=== PATIENT | female | born 1995 | race Caucasian/White ===

== ENCOUNTER 2017-02-07 07:51 | Emergency (ER) | payer MEDICAID ==
[~2017-02-07] VITALS: Ht 157.5 cm; Wt 65.0 kg
[~2017-02-07 07:51] MED LIST: ADDE10XR PO; ADDE30XR PO; CIPR1SUS4; PRED20 PO; SMZ-800T; [UNRECOGNIZED DRUG - CODE]
[2017-02-07 07:52] VITALS: BP 130/85; PULSE 102; RESP 20; TEMP 98.2; O2SAT 99
[2017-02-07] MEDS ORDERED: ADDE30XR PO (08:04)
[2017-02-07 08:05] VITALS: BP 151/90; PULSE 118; RESP 16; TEMP 98.4; O2SAT 99
[2017-02-07 08:10] VITALS: BP 151/90; PULSE 118; RESP 16; TEMP 98.4; O2SAT 98
[2017-02-07] MEDS ORDERED: ASPIRIN 81 MG CHEW TAB PO ONE (08:15)
[2017-02-07] MEDS ORDERED: LORazepam 2 MG/ML VIAL IV PUSH ONE (08:15)
[2017-02-07] MEDS ORDERED: SODIUM CHLORIDE 0.9% FLUSH 10 ML FLUSH IVF PRN (08:15)
[2017-02-07 08:19] LABS: AUTOMATED NEUTROPHIL # 5.4 TH/MM3 (1.8-7.7); BASOPHIL # 0.1 TH/MM3 (0-0.2); BASOPHIL % 0.8 % (0.0-2.0); EOSINOPHIL # 0.1 TH/MM3 (0-0.4); EOSINOPHIL % 1.2 % (0.0-4.0); HEMATOCRIT 39.4 % (35.0-46.0); HEMO FLAGS DIFF FINAL; LYMPH % 27.3 % (9.0-44.0); LYMPHOCYTE # 2.4 TH/MM3 (1.0-4.8); MEAN CELL VOLUME 79.6 FL (80.0-100.0); MEAN CORPUSCULAR HEMOGLOBIN 27.4 PG (27.0-34.0); MEAN CORPUSCULAR HGB CONC 34.4 % (32.0-36.0); MONO % 9.4 % (0.0-8.0); NEUT % 61.3 % (16.0-70.0); PLATELET COUNT 407 TH/MM3 (150-450); RED BLOOD COUNT 4.95 MIL/MM3 (4.00-5.30); WHITE BLOOD COUNT 8.9 TH/MM3 (4.0-11.0)
--- NOTE | 2017-02-07 08:31 | RADRPT ---
EXAM DATE/TIME: 02/07/2017 08:10 [place] COMPARISON: No previous studies available for comparison. INDICATIONS : Chest Pain MEDICAL HISTORY : None. SURGICAL HISTORY : None. ENCOUNTER: Initial ACUITY: 1 day PAIN SCORE: 9/10 LOCATION: Bilateral chest FINDINGS: A single view of the chest demonstrates the lungs to be symmetrically aerated without evidence of mas s, infiltrate or effusion. The cardiomediastinal contours are unremarkable. Osseous structures are intact. CONCLUSION: No acute disease. Baldo Braun MD on February 07, 2017 at 8:29 Board Certified Radiologist. This report was verified electronically.
[2017-02-07 08:34] LABS: ANION GAP 10 MEQ/L (5-15); APTT (PATIENT) 31.7 SEC (24.3-30.1); INTERNATIONAL NORMALIZED RATIO 1.1 RATIO
[2017-02-07 08:38] LABS: BICARBONATE 23.5 MEQ/L (21.0-32.0); BLOOD UREA NITROGEN 12 MG/DL (7-18); CHLORIDE 104 MEQ/L (98-107); GLOMERULAR FILTRATION RATE 107 ML/MIN (>89); MAGNESIUM 2.2 MG/DL (1.5-2.5); SODIUM (NA) 137 MEQ/L (136-145)
[2017-02-07 08:39] LABS: CREATINE KINASE 88 U/L (26-192); POTASSIUM 4.2 MEQ/L (3.5-5.1)
--- NOTE | 2017-02-07 08:39 | PD ---
HPI . Chest pain Chief Complaint: Chest Pain Time Seen by Provider: 08:05 Travel History International Travel<30 days: No Contact w/Intl Traveler<30days: No Traveled to known affect area: No History of Present Illness HPI Patient presents with a 2 week history of chest pain. She also has upper back pain. It is a sharp pain. Pain is exacerbated by eating and taking deep breaths. She reports no relieving factors. She states that the pain is associated with some nausea. She relates the pain as distantly 8/10 and occasionally 10/10. She denies any previous similar history. She is unsure as to what may have caused the pain. PFSH Past Medical History ADHD: Yes Developmental Delay: No Diminished Hearing: No Genitourinary: Yes (uti as baby) Immunizations Current: Yes Seizures: Yes Tetanus Vaccination: < 5 Years Influenza Vaccination: No ?: Unknown LMP: 01/24/2017 Menopausal: No Past Surgical History Surgical History: No Previous Surgery Social History Alcohol Use: No Tobacco Use: No Substance Use: No Allergies-Medications (Allergen,Severity, Reaction): Coded Allergies: No Known Allergies (Verified , 02/07/17) Reported Meds & Prescriptions Reported Meds & Active Scripts Active Reported Adderall Xr 24 HR (Amphetamine/Dextroamphetamine) 30 Mg Cap 30 Mg PO DAILY PRN Once daily in the morning. Review of Systems Except as stated in HPI: all other systems reviewed are Neg General / Constitutional: No: Fever, Chills Cardiovascular: Positive: Chest Pain or Discomfort Respiratory: No: Shortness of Breath Gastrointestinal: Positive: Nausea, No: Vomiting Psychiatric: Positive: Anxiety Physical Exam Narrative GENERAL: The patient appears withdrawn and tearful. She is speaking in a very soft voice. SKIN: Warm and dry. HEAD: Atraumatic. Normocephalic. EYES: Pupils equal and round. ENT: No nasal bleeding or discharge. Mucous membranes pink and moist. NECK: Trachea midline. Neck is supple. CARDIOVASCULAR: Tachycardic rate, regular rhythm. Heart sounds normal. RESPIRATORY: No accessory muscle use. Lungs are clear with full air movement throughout. Positive anterior chest wall tenderness. GASTROINTESTINAL: Abdomen soft, non-tender, nondistended. MUSCULOSKELETAL: No obvious deformities. No edema. NEUROLOGICAL: Awake and alert. No obvious cranial nerve deficits. Motor grossly within normal limits. Normal speech. PSYCHIATRIC: Depressed, anxious and tearful. Data Data Last Documented VS Vital Signs Date Time Temp Pulse Resp B/P Pulse Ox O2 Delivery O2 Flow Rate FiO2 02/07/17 08:52 102 21 128/84 99 Room Air 02/07/17 08:10 98.4 Orders Basic Metabolic Panel (Bmp) (02/07/17 08:05) Ckmb (Isoenzyme) Profile (02/07/17 08:05) Complete Blood Count With Diff (02/07/17 08:05) D-Dimer (02/07/17 08:05) Magnesium (Mg) (02/07/17 08:05) Prothrombin Time / Inr (Pt) (02/07/17 08:05) Act Partial Throm Time (Ptt) (02/07/17 08:05) Troponin I (02/07/17 08:05) Chest, Single Ap (02/07/17 08:05) Ecg Monitoring (02/07/17 08:05) Iv Access Insert/Monitor (02/07/17 08:05) Oximetry (02/07/17 08:05) Aspirin Chew (Aspirin Chew) (02/07/17 08:15) Sodium Chloride 0.9% Flush (Ns Flush) (02/07/17 08:15) Lorazepam Inj (Ativan Inj) (02/07/17 08:15) Labs Laboratory Tests Test 02/07/17 08:12 White Blood Count 8.9 TH/MM3 Red Blood Count 4.95 MIL/MM3 Hemoglobin 13.5 GM/DL Hematocrit 39.4 % Mean Corpuscular Volume 79.6 FL Mean Corpuscular Hemoglobin 27.4 PG Mean Corpuscular Hemoglobin 34.4 % Concent Red Cell Distribution Width 14.0 % Platelet Count 407 TH/MM3 Mean Platelet Volume 8.0 FL Neutrophils (%) (Auto) 61.3 % Lymphocytes (%) (Auto) 27.3 % Monocytes (%) (Auto) 9.4 % Eosinophils (%) (Auto) 1.2 % Basophils (%) (Auto) 0.8 % Neutrophils # (Auto) 5.4 TH/MM3 Lymphocytes # (Auto) 2.4 TH/MM3 Monocytes # (Auto) 0.8 TH/MM3 Eosinophils # (Auto) 0.1 TH/MM3 Basophils # (Auto) 0.1 TH/MM3 CBC Comment DIFF FINAL Differential Comment Prothrombin Time 12.0 SEC Prothromb Time International 1.1 RATIO Ratio Activated Partial 31.7 SEC Thromboplast Time D-Dimer Quantitative (PE/DVT) LESS THAN 0.19 MG/L FEU Sodium Level 137 MEQ/L Potassium Level 4.2 MEQ/L Chloride Level 104 MEQ/L Carbon Dioxide Level 23.5 MEQ/L Anion Gap 10 MEQ/L Blood Urea Nitrogen 12 MG/DL Creatinine 0.70 MG/DL Estimat Glomerular Filtration 107 ML/MIN Rate Random Glucose 86 MG/DL Calcium Level 9.4 MG/DL Magnesium Level 2.2 MG/DL Total Creatine Kinase 88 U/L Troponin I LESS THAN 0.02 NG/ML MDM Medical Decision Making Medical Screen Exam Complete: Yes Emergency Medical Condition: Yes Medical Record Reviewed: Yes (she has a history of ADHD.) Interpretation(s) EKG shows a sinus tachycardia with a ventricular rate of 114. No ST segment elevation or depression. Differential Diagnosis Differential diagnosis of chest pain includes but is not limited to musculoskeletal pain, pulmonary embolism, acute coronary syndrome, pneumonia, pleurisy Narrative Course CBC & BMP Diagram 02/07/17 08:12 Her d-dimer is less than 0.19 Cardiac enzymes are negative Last Impressions Chest X-Ray 02/07/17 0805 Signed Impressions: Service Date/Time: Tuesday, February 07, 2017 08:10 - CONCLUSION: No acute disease. Baldo Braun MD The chest x-ray was independently viewed by me. Patient presents with a two-week history of chest pain. She appears tearful and anxious. Her EKG shows sinus tachycardia. She will be treated presumptively for anxiety while her workup is pending. Most likely etiology of her chest pain is anxiety. She could also have a component of chest wall pain. Diagnosis Primary Impression: Chest pain Qualified Code: R07.9 - Chest pain, unspecified type Additional Impression: Anxiety disorder Qualified Code: F41.9 - Anxiety disorder, unspecified type Referrals: Primary Care Physician Patient Instructions: Anxiety (DC), Chest Pain (DC), General Instructions, Narcotic given in the ED Med/Other Pt SpecificInfo: Prescription(s) given Scripts Lorazepam (Ativan)1 Mg Tab1 Mg PO Q6H PRN (ANXIETY AND/OR AGITATION) #15 TAB Ref 0 Prov:Tamika Molina MD 02/07/17 Tramadol (Ultram)50 Mg Tab50 Mg PO Q4H PRN (PAIN) #12 TAB Ref 0 Prov:Tamika Molina MD 02/07/17 Ibuprofen 800 Mg [id number] Mg PO Q8H PRN (pain) #30 TAB Ref 0 Prov:Tamika Molina MD 02/07/17 Disposition: 01 DISCHARGE HOME Condition: Stable Tamika Molina MD Feb 07, 2017 08:39
[2017-02-07 08:52] VITALS: BP 128/84; PULSE 102; RESP 21; O2SAT 99
[2017-02-07] MEDS ORDERED: ULTR50TA5 PO (09:18)
[2017-02-07] MEDS ORDERED: IBUP800T23 PO (09:18)
[2017-02-07] MEDS ORDERED: LORA-474 PO (09:18)
[2017-02-07 09:31] VITALS: BP 120/67; TEMP 97.8
--- NOTE | 2017-02-07 12:08 | EKG ---
Date Performed: 02/07/2017 Time Performed: 08:04:34 PTAGE: 21 years EKG: SINUS TACHYCARDIA NONSPECIFIC T-WAVE ABNORMALITY ABNORMAL RHYTHM ECG INTERPRETATION BASED O N A DEFAULT AGE OF 41 YEARS PREVIOUS TRACING : 1996 09.41 DOCTOR: Ernst Castillo Interpretating Date/Time 02/07/2017 12:07:09
== END 2017-02-07 09:31 | disposition home or self-care (01) ==
LOC: NEPC 07:51
DX: R07.9 Chest pain, unspecified (principal); F41.9 Anxiety disorder, unspecified; R00.0 Tachycardia, unspecified; M54.6 Pain in thoracic spine; R11.0 Nausea; R94.31 Abnormal electrocardiogram [ECG] [EKG]; Z86.59 Personal history of other mental and behavioral disorders; Z86.69 Personal history of other diseases of the nervous system and sense organs
CPT/HCPCS: 71010; 80048; 82550; 83735; 84484; 85025; 85379; 85610; 85730; 93005; 96374; 99285; J2060

== ENCOUNTER 2017-02-27 18:02 | Emergency (ER) | payer MEDICAID ==
[~2017-02-27] VITALS: Ht 157.5 cm; Wt 65.0 kg
[~2017-02-27 18:02] MED LIST changes: -ADDE10XR PO; -CIPR1SUS4; +IBUP800T23 PO; +LORA-474 PO; -PRED20 PO; -SMZ-800T; +ULTR50TA5 PO; -[UNRECOGNIZED DRUG - CODE]
[2017-02-27 18:04] VITALS: BP 134/83; PULSE 111; RESP 17; TEMP 98.2; O2SAT 98
--- NOTE | 2017-02-27 18:11 | PD ---
Physical Exam Date Seen by Provider: Feb 27, 2017 Time Seen by Provider: 18:08 Narrative Pt presents for evaluation of 2 weeks of headaches. Pt has trialed Ibuprofen with no relief. Pt stated she vomited this morning and reports mild nausea. Pain is a 5/10, radiates down neck and she states it is hard to breath. Pt reports hx of panic disorder and thinks this could be partly responsible for the SOB. Pt states she has pressure behind her eyes. Data Data Last Documented VS Vital Signs Date Time Temp Pulse Resp B/P Pulse Ox O2 Delivery O2 Flow Rate FiO2 02/27/17 18:04 98.2 111 17 134/83 98 MDM Supervised Visit with BOBO: Helen Cruz Feb 27, 2017 18:11
--- NOTE | 2017-02-27 18:39 | PD ---
HPI . headache x 2 weeks Chief Complaint: Headache Time Seen by Provider: 18:38 Travel History International Travel<30 days: No Contact w/Intl Traveler<30days: No Traveled to known affect area: No History of Present Illness HPI 21-year-old female with history of anxiety and ADHD here with complaints of headache for 2 weeks. Patient tells me that she has had a headache in the frontal area sometimes going to the back of her head for 2 weeks. She's tried ibuprofen without any relief. She does have a history of headaches, but this headache seems to be more pressure-like in nature. She reports that her head feels full. She admits to having some similar issues last year, but her eyes were puffy. This year they are not puffy. She thinks she may have had a fever , but never checked it with a thermometer. She denies any chills. She denies any nasal congestion. She denies any visual changes. She denies any neuro deficits. She is accompanied by a friend. PFSH Past Medical History ADHD: Yes Developmental Delay: No Diminished Hearing: No Genitourinary: Yes (uti as baby) Immunizations Current: Yes Seizures: Yes ?: Not LMP: 02/22/2017 Menopausal: No Social History Alcohol Use: No Tobacco Use: No Substance Use: No Allergies-Medications (Allergen,Severity, Reaction): Coded Allergies: No Known Allergies (Verified , 02/27/17) Reported Meds & Prescriptions Reported Meds & Active Scripts Active Sudafed (Pseudoephedrine HCl) 30 Mg Tab 30 Mg PO Q6H PRN 2 Days Augmentin (Amoxicillin-Clavulanate) 875-125 mg Tab 875 Mg PO BID not for use in CrCl <30 ml/min. Ativan (Lorazepam) 1 Mg Tab 1 Mg PO Q6H PRN Ultram (Tramadol HCl) 50 Mg Tab 50 Mg PO Q4H PRN Ibuprofen 800 Mg Tab 800 Mg PO Q8H PRN Reported Adderall Xr 24 HR (Amphetamine/Dextroamphetamine) 30 Mg Cap 30 Mg PO DAILY PRN Once daily in the morning. Review of Systems General / Constitutional: No: Fever Eyes: No: Visual changes HENT: Positive: Headaches Cardiovascular: No: Chest Pain or Discomfort Respiratory: No: Shortness of Breath Gastrointestinal: No: Abdominal Pain Genitourinary: No: Dysuria Musculoskeletal: No: Pain Skin: No Rash Neurologic: No: Weakness Psychiatric: No: Depression Endocrine: No: Polydipsia Hematologic/Lymphatic: No: Easy Bruising Physical Exam Narrative GENERAL: AAO x 3, no acute distress, Well-nourished, well-developed patient. SKIN: Warm and dry. No visible rashes or bruising. HEAD: Normocephalic and atraumatic. EYES: No scleral icterus. No injection or drainage. EOM intact, PERRLA. No photophobia ENT: No nasal drainage noted. Mucous membranes pink. Airway patent. No posterior pharynx erythema, edema or exudates. TMs cloudy bilaterally. Right side is slightly bulging. NECK: Supple, trachea midline. No JVD. No adenopathy. No neck stiffness CARDIOVASCULAR: Regular rate and rhythm without murmurs, gallops, or rubs. HR on exam 102 RESPIRATORY: Breath sounds equal bilaterally. No accessory muscle use. No rhonchi or rales. Wheezing GASTROINTESTINAL: Abdomen soft, non-tender, nondistended. EXTREMITIES: No cyanosis or edema. BACK: Nontender without obvious deformity. No CVA tenderness. 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 Upper and lower extremity strength normal. Motor function normal. PSYCH: AAO x 3, normal affect. Data Data Last Documented VS Vital Signs Date Time Temp Pulse Resp B/P Pulse Ox O2 Delivery O2 Flow Rate FiO2 02/27/17 18:04 98.2 111 17 134/83 98 MDM Medical Decision Making Medical Screen Exam Complete: Yes Emergency Medical Condition: Yes Medical Record Reviewed: Yes Differential Diagnosis sinusitis, OM, less likely pharyngitis Narrative Course 21-year-old female with history of anxiety and ADHD here with complaints of headache for 2 weeks. Patient tells me that she has had a headache in the frontal area sometimes going to the back of her head for 2 weeks. She's tried ibuprofen without any relief. She does have a history of headaches, but this headache seems to be more pressure-like in nature. She reports that her head feels full. She admits to having some similar issues last year, but her eyes were puffy. This year they are not puffy. She thinks she may have had a fever , but never checked it with a thermometer. She denies any chills. She denies any nasal congestion. She denies any visual changes. She denies any neuro deficits. She is accompanied by a friend. Patient seen and examined. She appears to have a sinusitis and Right OM. I will treat her with a course of augmentin. I also recommend sudafed. I explained to her that her headache is likely related to sinus pressure. Her heart rate on exam is 102; I reviewed her records and this seems to be within normal range for her baseline. She does not have any neuro deficits. I do not any need for CT scan of brain. There is a clear explanation for her headache. I've advised follow-up with her primary care provider. Patient verbalized understanding of instructions, questions were answered, and thanked me for their care. I advised them if their condition worsens, please return to the nearest emergency room for further care. Diagnosis Primary Impression: Acute sinusitis Qualified Code: J01.00 - Acute maxillary sinusitis, recurrence not specified Additional Impression: ROM (right otitis media) Qualified Code: H65.01 - Right acute serous otitis media, recurrence not specified Patient Instructions: General Instructions, Otitis Media (ED), Sinusitis (ED) Additional Instructions: Please return to emergency department if your symptoms return or worsen. Follow up with your primary care provider. Take medications as prescribed. Med/Other Pt SpecificInfo: Prescription(s) given Scripts Pseudoephedrine (Sudafed)30 Mg Tab30 Mg PO Q6H PRN (NASAL CONGESTION) 2 Days Ref 0 Prov:Hany Merlos MD 02/27/17 Amoxicillin-Clavulanate (Augmentin)875-125 mg [id number] Mg PO BID #20 TAB not for use in CrCl <30 ml/min. Prov:Hany Merlos MD 02/27/17 Disposition: 01 DISCHARGE HOME Condition: Stable Steff Pickard Feb 27, 2017 18:39
[2017-02-27] MEDS ORDERED: SUDA30TA2 PO (18:47)
[2017-02-27] MEDS ORDERED: AUGM875T PO (18:47)
[2017-02-27] MEDS ORDERED: PROMETHAZINE HCL 25 MG TAB PO ONE (19:45)
[2017-02-27] MEDS ORDERED: PROM25TA5 PO (19:45)
== END 2017-02-27 20:16 | disposition home or self-care (01) ==
LOC: NEPK 18:02
DX: J01.90 Acute sinusitis, unspecified (principal); H66.91 Otitis media, unspecified, right ear
CPT/HCPCS: 99283; Q0169

== ENCOUNTER 2017-10-25 16:27 | Inpatient (IN) | payer MEDICAID ==
[~2017-10-25] VITALS: Ht 157.5 cm; Wt 70.0 kg
[~2017-10-25 16:27] MED LIST changes: -ADDE30XR PO; +DEXAMETHASONE SOD PHOS 4 MG/ML VIAL IV ONE; +GLYCOPYRROLATE 1 MG/5 ML SYRINGE IV PUSH ONE; -IBUP800T23 PO; +KETOROLAC TROMETHAMINE 30 MG/ML (IVP) VIAL IV PUSH ONE; +LACTATED RINGER'S 1000 ML INJ 2,000 ML IV ONE; +LIDOCAINE HCL 1% PF 5 ML SYRINGE OTHER ONE; -LORA-474 PO; +NEOSTIGMINE 5 MG/5 ML SYRINGE IV PUSH ONE; +NORE1TAB55 PO; +ONDANSETRON HCL 4 MG/2 ML VIAL IV ONE; +PROPOFOL 200 MG/20 ML AMP IV ONE; +ROCURONIUM INJ 50 MG/5 ML SYRINGE IV PUSH ONE; +SUCCINYLCHOLINE CHLORIDE 100 MG/5 ML SYRINGE IV PUSH ONE; -ULTR50TA5 PO
[2017-10-25 16:29] VITALS: BP 155/87; PULSE 99; RESP 18; TEMP 98.1; O2SAT 99
[2017-10-25] MEDS ORDERED: SODIUM CHLOR 0.9% 1000 ML INJ 1,000 ML IV SCH ×3 (17:20→22:59)
--- NOTE | 2017-10-25 17:26 | PD ---
HPI Chief Complaint: Abdominal Pain Time Seen by Provider: 17:19 Travel History International Travel<30 days: No Contact w/Intl Traveler<30days: No Traveled to known affect area: No History of Present Illness HPI 21-year-old female complains of right lower quadrant abdominal pain and nausea. Patient states the symptoms started 4 days ago. Patient states the pain is severe sharp pain localized to the right lower quadrant abdomen. Patient denies any pain radiation. Patient states that she has nausea but no vomiting or diarrhea. Patient states that she has history of dysmenorrhea and ovarian cyst in the past. Patient was put on control pills for that. Patient started her menstruation period 4 days ago. Patient has history of irregular periods in the past. On a scale of 1-10 the pain is a 9. Patient denies any dysuria or frequency. Patient denies any back pain. PFSH Past Medical History ADHD: Yes Developmental Delay: No Diminished Hearing: No Genitourinary: Yes (uti ) Immunizations Current: Yes Seizures: Yes ?: Not Menopausal: No Past Surgical History Surgical History: No Previous Surgery Social History Alcohol Use: No Tobacco Use: No Substance Use: No Allergies-Medications (Allergen,Severity, Reaction): Coded Allergies: No Known Allergies (Verified , 07/04/17) Reported Meds & Prescriptions Reported Meds & Active Scripts Active Loestrin Fe 1-20 Tablet (Norethindrone-E.estradiol-Iron) 1 Mg-20 Mcg (21)/75 Mg (7) Tablet 1 Tab PO DAILY Review of Systems General / Constitutional: No: Fever Eyes: No: Visual changes HENT: No: Headaches Cardiovascular: No: Chest Pain or Discomfort Respiratory: No: Shortness of Breath Gastrointestinal: Positive: Nausea, Abdominal Pain Genitourinary: No: Dysuria Musculoskeletal: No: Pain Skin: No Rash Neurologic: No: Weakness Psychiatric: No: Depression Endocrine: No: Polydipsia Hematologic/Lymphatic: No: Easy Bruising Physical Exam Narrative GENERAL: Well-nourished, well-developed patient. SKIN: Focused skin assessment warm/dry. HEAD: Normocephalic. EYES: No scleral icterus. No injection or drainage. NECK: Supple, trachea midline. No JVD or lymphadenopathy. CARDIOVASCULAR: Regular rate and rhythm without murmurs, gallops, or rubs. RESPIRATORY: Breath sounds equal bilaterally. No accessory muscle use. GASTROINTESTINAL: Abdomen soft, nondistended. Patient has moderate tenderness on palpation right lower quadrant of the abdomen. No rebound tenderness. No mass. MUSCULOSKELETAL: No cyanosis, or edema. BACK: Nontender without obvious deformity. No CVA tenderness. Neurologic exam normal. Data Data Last Documented VS Vital Signs Date Time Temp Pulse Resp B/P (MAP) Pulse Ox O2 Delivery O2 Flow Rate FiO2 10/25/17 16:29 98.1 99 18 155/87 (109) 99 Room Air Orders Orders Complete Blood Count With Diff (10/25/17 17:20) Comprehensive Metabolic Panel (10/25/17 17:20) Urinalysis - C+S If Indicated (10/25/17 17:20) Ct Abd/Pel W Iv Contrast(Rout) (10/25/17 17:20) Iv Access Insert/Monitor (10/25/17 17:20) Ecg Monitoring (10/25/17 17:20) Oximetry (10/25/17 17:20) Ondansetron Inj (Zofran Inj) (10/25/17 17:30) Sodium Chlor 0.9% 1000 Ml Inj (Ns 1000 M (10/25/17 17:20) Sodium Chloride 0.9% Flush (Ns Flush) (10/25/17 17:30) Ed Urine Pregnancytest Poc (10/25/17 17:20) Hydromorphone Pf Inj (Dilaudid Pf Inj) (10/25/17 17:30) MDM Medical Decision Making Medical Screen Exam Complete: Yes Emergency Medical Condition: Yes Differential Diagnosis Differential diagnosis including [place] cyst, ovarian torsion, appendicitis, colitis, UTI, pyelonephritis, nephrolithiasis. Narrative Course 21-year-old female with right lower quadrant abdominal pain and nausea. History of ovarian cyst and dysmenorrhea. Normal saline solution 1 25 cc an hour. Dilaudid 0.5 mg IV. Zofran 4 mg IV. Caden Ribera MD Oct 25, 2017 17:25
[2017-10-25] MEDS ORDERED: ONDANSETRON HCL 4 MG/2 ML VIAL IVP ONE (17:30)
[2017-10-25] MEDS ORDERED: HYDROmorphone HCL PF 2 MG/ML VIAL IV PUSH ONE (17:30)
[2017-10-25] MEDS ORDERED: SODIUM CHLORIDE 0.9% FLUSH 10 ML FLUSH IV FLUSH PRN ×2 (17:30→23:00)
[2017-10-25 18:17] LABS: AUTOMATED NEUTROPHIL # 6.6 TH/MM3 (1.8-7.7); BASOPHIL # 0.1 TH/MM3 (0-0.2); BASOPHIL % 0.7 % (0.0-2.0); EOSINOPHIL # 0.2 TH/MM3 (0-0.4); EOSINOPHIL % 1.7 % (0.0-4.0); HEMATOCRIT 42.6 % (35.0-46.0); HEMO FLAGS DIFF FINAL; LYMPH % 26.3 % (9.0-44.0); LYMPHOCYTE # 2.7 TH/MM3 (1.0-4.8); MEAN CELL VOLUME 81.6 FL (80.0-100.0); MEAN CORPUSCULAR HEMOGLOBIN 28.2 PG (27.0-34.0); MEAN CORPUSCULAR HGB CONC 34.6 % (32.0-36.0); MONO % 7.4 % (0.0-8.0); NEUT % 63.9 % (16.0-70.0); PLATELET COUNT 392 TH/MM3 (150-450); RED BLOOD COUNT 5.21 MIL/MM3 (4.00-5.30); RED CELL DISTRIBUTION WIDTH 14.3 % (11.6-17.2); WHITE BLOOD COUNT 10.3 TH/MM3 (4.0-11.0)
[2017-10-25 18:18] LABS: BACTERIA, URINE RARE /hpf; BLOOD, URINE MOD (NEG); GLUCOSE,URINE NEG (NEG); KETONE, URINE NEG (NEG); NITRITE,URINE NEG (NEG); PH, URINE 6.5 (5.0-8.5); SQUAMOUS EPITHELIAL CELL URINE 2 /hpf (0-5); URINE COLOR LIGHT-YELLOW (YELLW/STRAW)
[2017-10-25 18:19] LABS: COMMENT (UR) CULT NOT INDICATED; CULTURE IF INDICATED CULT NOT INDICATED
[2017-10-25 18:37] LABS: ANION GAP 7 MEQ/L (5-15); AST (GOT) 14 U/L (16-38); BICARBONATE 26.8 MEQ/L (21.0-32.0); CHLORIDE 107 MEQ/L (98-107); GLOMERULAR FILTRATION RATE 103 ML/MIN (>89); POTASSIUM 3.7 MEQ/L (3.5-5.1); SODIUM (NA) 141 MEQ/L (136-145)
[2017-10-25 18:43] LABS: ALKALINE PHOSPHATASE 78 U/L (45-117); ALT (GPT) 20 U/L (9-42); BLOOD UREA NITROGEN 8 MG/DL (7-18); TOTAL BILIRUBIN ADULT LESS THAN 0.1 MG/DL (0.2-1.0)
[2017-10-25] MEDS ORDERED: IOHEXOL 350 MG/ML 10 ML VIAL (for RAD DIAG) IVCONTRAST ONE (19:11)
--- NOTE | 2017-10-25 19:22 | PD ---
Physical Exam Date Seen by Provider: Oct 25, 2017 Time Seen by Provider: 19:21 Narrative Accepted in transfer of care from Dr. Ribera GENERAL: Well-developed well-nourished pleasant female in no acute distress no respiratory distress SKIN: Warm and dry. CARDIOVASCULAR: Regular rate and rhythm without murmurs, gallops, or rubs. RESPIRATORY: Breath sounds equal bilaterally. No accessory muscle use. GASTROINTESTINAL: Abdomen soft, tender right lower quadrant to palpation with voluntary guarding, nondistended. Pelvic exam: Normal external exam no redness no induration no ulcerations no gross blood; speculum exam scant amount of brown blood no clots no tissue cervical os is closed; bimanual exam no cervical motion tenderness mild right adnexal tenderness without mass. Data Data Last Documented VS Vital Signs Date Time Temp Pulse Resp B/P (MAP) Pulse Ox O2 Delivery O2 Flow Rate FiO2 10/25/17 20:43 96 16 119/80 (93) 99 10/25/17 20:38 Room Air 10/25/17 16:29 98.1 Orders Orders Complete Blood Count With Diff (10/25/17 17:20) Comprehensive Metabolic Panel (10/25/17 17:20) Urinalysis - C+S If Indicated (10/25/17 17:20) Ct Abd/Pel W Iv Contrast(Rout) (10/25/17 17:20) Iv Access Insert/Monitor (10/25/17 17:20) Ecg Monitoring (10/25/17 17:20) Oximetry (10/25/17 17:20) Ondansetron Inj (Zofran Inj) (10/25/17 17:30) Sodium Chlor 0.9% 1000 Ml Inj (Ns 1000 M (10/25/17 17:20) Sodium Chloride 0.9% Flush (Ns Flush) (10/25/17 17:30) Ed Urine Pregnancytest Poc (10/25/17 17:20) Hydromorphone Pf Inj (Dilaudid Pf Inj) (10/25/17 17:30) Iohexol 350 Inj (Omnipaque 350 Inj) (10/25/17 19:11) Type And Screen (10/25/17 20:38) Labs Laboratory Tests Test 10/25/17 18:00 White Blood Count 10.3 TH/MM3 Red Blood Count 5.21 MIL/MM3 Hemoglobin 14.7 GM/DL Hematocrit 42.6 % Mean Corpuscular Volume 81.6 FL Mean Corpuscular Hemoglobin 28.2 PG Mean Corpuscular Hemoglobin Concent 34.6 % Red Cell Distribution Width 14.3 % Platelet Count 392 TH/MM3 Mean Platelet Volume 8.4 FL Neutrophils (%) (Auto) 63.9 % Lymphocytes (%) (Auto) 26.3 % Monocytes (%) (Auto) 7.4 % Eosinophils (%) (Auto) 1.7 % Basophils (%) (Auto) 0.7 % Neutrophils # (Auto) 6.6 TH/MM3 Lymphocytes # (Auto) 2.7 TH/MM3 Monocytes # (Auto) 0.8 TH/MM3 Eosinophils # (Auto) 0.2 TH/MM3 Basophils # (Auto) 0.1 TH/MM3 CBC Comment DIFF FINAL Differential Comment Urine Color LIGHT-YELLOW Urine Turbidity CLEAR Urine pH 6.5 Urine Specific Brooks 1.004 Urine Protein NEG mg/dL Urine Glucose (UA) NEG mg/dL Urine Ketones NEG mg/dL Urine Occult Blood MOD Urine Nitrite NEG Urine Bilirubin NEG Urine Urobilinogen LESS THAN 2.0 MG/DL Urine Leukocyte Esterase NEG Urine RBC LESS THAN 1 /hpf Urine WBC LESS THAN 1 /hpf Urine Squamous Epithelial Cells 2 /hpf Urine Bacteria RARE /hpf Microscopic Urinalysis Comment CULT NOT INDICATED Blood Urea Nitrogen 8 MG/DL Creatinine 0.72 MG/DL Random Glucose 75 MG/DL Total Protein 7.9 GM/DL Albumin 4.2 GM/DL Calcium Level 9.2 MG/DL Alkaline Phosphatase 78 U/L Aspartate Amino Transf (AST/SGOT) 14 U/L Alanine Aminotransferase (ALT/SGPT) 20 U/L Total Bilirubin LESS THAN 0.1 MG/DL Sodium Level 141 MEQ/L Potassium Level 3.7 MEQ/L Chloride Level 107 MEQ/L Carbon Dioxide Level 26.8 MEQ/L Anion Gap 7 MEQ/L Estimat Glomerular Filtration Rate 103 ML/MIN [facility] Medical Record Reviewed: Yes Supervised Visit with BOBO: No Interpretation(s) Last Impressions Abdomen/Pelvis CT 10/25/17 1720 Signed Impressions: Service Date/Time: October 19:07 - CONCLUSION: 1. Poorly defined tubular structure medial to the cecum measures 11 mm, suggesting a enlarged and inflamed appendix. There is also evidence of significant free fluid in the cul-de-sac. No findings suggest possible appendicitis, but this would need to be correlated with clinical findings. 2. Probable right ovarian cyst. Marcos Hills MD CBC & BMP Diagram 10/25/17 18:00 Total Protein 7.9, Albumin 4.2, Calcium Level 9.2, Alkaline Phosphatase 78, Aspartate Amino Transf (AST/SGOT) 14 L, Alanine Aminotransferase (ALT/SGPT) 20, Total Bilirubin LESS THAN 0.1 L Vital Signs Date Time Temp Pulse Resp B/P (MAP) Pulse Ox O2 Delivery O2 Flow Rate FiO2 10/25/17 16:29 98.1 99 18 155/87 (109) 99 Room Air Differential Diagnosis Accepted in transfer of care from Dr. Ribera; please refer to his dictation Narrative Course Accepted in transfer of care from Dr. Ribera; follow up CT Pelvic exam performed by me reveals no cervical motion tenderness and mild right vaginal wall tenderness no mass os is closed no tissue no clots or blood is present. CT is consistent with possible ruptured ovarian cyst. Also concerning for inflammatory changes in the area of the appendix concerning for appendicitis. Orthostatic vital signs obtained. Call placed to general surgery and to [employer]. @ 8:59 CT discussed with reading radiologist Dr. Hills and states that the dictation should say findings consistent with appendicitis; call placed to general surgery case discussed with Dr. Kumar will review imaging study and will be in to the ED to see the patient. Physician Communication Physician Communication discussed with Dr Kumar [phone] Carmen Bocanegra MD Oct 25, 2017 19:22
--- NOTE | 2017-10-25 19:32 | RADRPT ---
EXAM DATE/TIME: 10/25/2017 19:07 CORRECTION Corrected on: October 25, 2017; typographical error in the impression was corrected. The findings d o suggest appendicitis. [facility] COMPARISON: No previous studies available for comparison. INDICATIONS : Right lower quadrant pain with nausea. IV CONTRAST: 95 cc Omnipaque 350 (iohexol) IV ORAL CONTRAST: No oral contrast ingested. RADIATION DOSE: 7.72 CTDIvol (mGy) MEDICAL HISTORY : None SURGICAL HISTORY : None. ENCOUNTER: Initial ACUITY: 4 - 6 days PAIN SCALE: 10/10 LOCATION: Right lower quadrant TECHNIQUE: Volumetric scanning of the abdomen and pelvis was performed. Using automated exposure control and ad justment of the mA and/or kV according to patient size, radiation dose was kept as low as reasonably achievable to obtain optimal diagnostic quality images. DICOM format image data is available electro nically for review and comparison. FINDINGS: LOWER LUNGS: The visualized lower lungs are clear. LIVER: Homogeneous density without lesion. There is no dilation of the biliary tree. No calcified gallston es. SPLEEN: Normal size without lesion. PANCREAS: Within normal limits. KIDNEYS: Normal in size and shape. There is no mass, stone or hydronephrosis. ADRENAL GLANDS: Within normal limits. VASCULAR: There is no aortic aneurysm. BOWEL/MESENTERY: No dilated loops of small bowel. There is a mild amount of stool in the colon. There is a mild degr ee of induration of the soft tissues medial to the cecum and there is a tubular structure which measu res 11 mm with poorly defined margins, approximately in the expected location of the appendix. His m ay represent an enlarged inflamed appendix. ABDOMINAL WALL: Within normal limits. RETROPERITONEUM: There is no lymphadenopathy. BLADDER: No wall thickening or mass. REPRODUCTIVE: Low-density area in the right adnexa measuring 1.5 cm may represent ovarian cysts. The left ovary me asures 3.6 cm. There is a prominent amount free fluid in the cul-de-sac measuring 2.2 cm. INGUINAL: There is no lymphadenopathy or hernia. MUSCULOSKELETAL: Within normal limits for patient age. CONCLUSION: 1. Poorly defined tubular structure medial to the cecum measures 11 mm, suggesting a enlarged and inf lamed appendix. There is also evidence of significant free fluid in the cul-de-sac. These findings suggest possible appendicitis, but would need to be correlated with clinical findings. 2. Probable right ovarian cyst. Marcos Hills MD on October 25, 2017 at 19:24 Board Certified Radiologist. This report was verified electronically. Marcos Hills MD on October 25, 2017 at 21:01 Board Certified Radiologist. This report was verified electronically.
[2017-10-25 20:38] VITALS: BP 136/88; PULSE 111; RESP 16; O2SAT 98
[2017-10-25 20:43] VITALS: BP 119/80; PULSE 96; RESP 16; O2SAT 99
[2017-10-25] MEDS ORDERED: BUPIVACAINE/EPINEPHRINE 0.5% PF 30 ML VIAL ONE (22:09)
[2017-10-25] MEDS ORDERED: PIPERACIL-TAZO 3.375 GM PREMIX 50 ML IV ONE (22:15)
[2017-10-25] MEDS ORDERED: ACETAMINOPHEN 1000 MG/100 ML 100 ML IV ONE (22:42)
--- NOTE | 2017-10-25 22:59 | HHI.PR ---
Immediate Post Op Note Procedure Date: Oct 25, 2017 Pre Op Diagnosis: acute appendicitis Post Op Diagnosis: same Surgeon: Tello Kumar MD Environmental Engineering Technician(s): see or sheet Procedure: lap appy Findings: distended appendix Complications: none Specimen(s) removed: appendix Estimated blood loss: 5cc Anesthesia: General Drains: None Patient to: PACU Patient Condition: Good Tello Kumar MD Oct 25, 2017 22:59
[2017-10-25] MEDS ORDERED: KETOROLAC TROMETHAMINE 30 MG/ML (IVP) VIAL IVP PRN (23:00)
[2017-10-25] MEDS: DOCUSATE SODIUM 100 MG CAP PO SCH (23:00)
[2017-10-25] MEDS ORDERED: Post-op Orders (for Pharmacy) XX ONE (23:00)
[2017-10-25] MEDS ORDERED: ACETAMINOPHEN/HYDROcodone 325 MG/5 MG TAB PO PRN (23:00)
[2017-10-25] MEDS ORDERED: ONDANSETRON HCL 4 MG/2 ML VIAL IV PUSH PRN (23:00)
[2017-10-25] MEDS ORDERED: DO NOT ADM ANY ANTICOAGULANT DRUGS PRN (23:45)
[2017-10-26] MEDS ORDERED: diphenhydrAMINE HCL 50 MG/ML VIAL ONE (00:02)
[2017-10-26 00:55] VITALS: BP 109/70; PULSE 90; RESP 17; TEMP 97.1; O2SAT 97
[2017-10-26 04:45] VITALS: BP 116/55; PULSE 84; RESP 17; TEMP 98.2; O2SAT 97
[2017-10-26] MEDS: ACETAMINOPHEN/HYDROcodone 325 MG/5 MG TAB PO PRN ×2 (06:49→11:24)
[2017-10-26 07:00] LABS: AUTOMATED NEUTROPHIL # 7.8 TH/MM3 (1.8-7.7); BASOPHIL % 0.2 % (0.0-2.0); HEMATOCRIT 37.5 % (35.0-46.0); HEMO FLAGS DIFF FINAL; LYMPH % 5.6 % (9.0-44.0); LYMPHOCYTE # 0.5 TH/MM3 (1.0-4.8); MEAN CELL VOLUME 81.8 FL (80.0-100.0); MEAN CORPUSCULAR HEMOGLOBIN 28.1 PG (27.0-34.0); MEAN CORPUSCULAR HGB CONC 34.4 % (32.0-36.0); NEUT % 93.2 % (16.0-70.0); PLATELET COUNT 324 TH/MM3 (150-450); RED BLOOD COUNT 4.58 MIL/MM3 (4.00-5.30); WHITE BLOOD COUNT 8.4 TH/MM3 (4.0-11.0)
[2017-10-26 07:23] LABS: BICARBONATE 23.8 MEQ/L (21.0-32.0); POTASSIUM 4.3 MEQ/L (3.5-5.1)
[2017-10-26] MEDS ORDERED: HYDR-3516 PO (08:35)
[2017-10-26 08:44] VITALS: BP 103/58; PULSE 84; RESP 17; TEMP 97.5; O2SAT 96
[2017-10-26] MEDS: SODIUM CHLORIDE 0.9% FLUSH 10 ML FLUSH IV FLUSH SCH ×2 (08:52)
[2017-10-26] MEDS: DOCUSATE SODIUM 100 MG CAP PO SCH (08:52)
--- NOTE | 2017-10-26 11:22 | MH ---
cc: [facility] DATE OF ADMISSION 10/25/2017 CHIEF COMPLAINT Abdominal pain. HISTORY OF PRESENT ILLNESS The patient is a 21-year-old female who presents with right lower quadrant abdominal pain. The patient states the pain started approximately four days ago and has continued to get worse. She states she has never had pain quite as severe as this and notes it to be initially 9/10 and then had some improvement to 5/10. She denied any fevers or chills. Again states never had pain quite like this before. She does have some mild pain on the left but is primarily in the right lower quadrant. She also has a history of dysmenorrhea and cysts. A CT obtained showed concern for acute appendicitis and therefore surgery was consulted for further evaluation. The patient's WBC was 10.2. PAST MEDICAL HISTORY 1. ADHD. 2. UTI. 3. Seizure. PAST SURGICAL HISTORY The patient has no surgeries. SOCIAL HISTORY Denies smoking, ETOH or IVDA. MEDICATIONS See EMR. ALLERGIES No known drug allergies. FAMILY HISTORY Denies diabetes or hypertension. REVIEW OF SYSTEMS CONSTITUTIONAL: Denies fevers or chills. HEENT: Denies eye pain or ear pain. NECK: Denies swelling or pain. PULMONARY: Denies cough or wheeze. CARDIOVASCULAR: Denies palpitations or chest pain. GASTROINTESTINAL: Complains of nausea and abdominal pain. GENITOURINARY: Denies dysuria or hematuria. ENDOCRINE: Denies polyuria or polydipsia. INTEGUMENTARY: Denies masses or lesions. PSYCHIATRIC: Appropriate mood, anxious. PHYSICAL EXAMINATION GENERAL: Patient in no acute distress. VITAL SIGNS: Temperature 98.1, pulse 99, respirations 18, blood pressure 155/87, saturation 99%. HEENT: Pupils are equal, round and reactive. NECK: Supple. Trachea midline. LUNGS: Clear to auscultation. Bilateral expansion. HEART: S1, S2, regular rhythm. ABDOMEN: Soft. Positive tenderness to palpation right lower quadrant. No rebound. No guarding. EXTREMITIES: Warm and well-perfused. NEUROLOGIC: GCS of 15. 5/5 motor in all extremities. PSYCHIATRIC: Appropriate insight and good judgment. LABORATORY WBC 10.3, hemoglobin 14.7, hematocrit 42.6, platelets 319. Sodium 141, potassium 3.7, chloride 107, BUN 8, creatinine 0.7, AST 14, ALT 20, alkaline phosphatase 78. UA negative. IMAGING CT reviewed by myself and the radiologist: Concern for acute appendicitis, 11 mm, concern for inflamed appendix, fluid in cul-de-sac, ovarian cysts. ASSESSMENT A 21-year-old female who presents with acute onset right lower quadrant pain, concern for appendicitis. PLAN After full clinical, radiologic and laboratory work-up, patient with above-named issues including concern for appendicitis. The patient does have significant pain, especially on deep palpation of the right lower quadrant and minimal rebound. Her white count is normal without fevers, however, the pain does appear significant. After review of the CT with the radiologist concern is for acute appendicitis. Discussed with patient regarding options of admission, recheck labs in the a.m. versus proceeding to the operating room for appendectomy. The patient states she would like to have her appendix removed. Discussed the risks and benefits in detail. She understands and agrees. Currently n.p.o., IV fluids, IV antibiotics and pain control. Will take the patient to the OR for operative intervention. MD CICI Rain/HERMES /12:03 AM /10:50 AM
[2017-10-26 12:11] VITALS: BP 103/59; PULSE 85; RESP 18; TEMP 98.2; O2SAT 98
[2017-10-26 16:55] VITALS: BP 112/71; PULSE 90; RESP 18; TEMP 98; O2SAT 97
--- NOTE | 2017-10-26 17:22 | HHI.DS ---
Discharge Summary Admission Date Oct 25, 2017 at 23:02 Discharge Date: Oct 26, 2017 Admitting Diagnosis appendicitis Brief History 21 year old female POD1 lap appy; uncomplicated; nonperforated CBC/BMP: 10/26/17 0629 10/26/17 0629 Significant Findings Laboratory Tests Test 10/25/17 18:00 10/26/17 06:29 Urine Occult Blood MOD (NEG) Urine Bacteria RARE /hpf (NONE) Aspartate Amino Transf (AST/SGOT) 14 U/L (16-38) Total Bilirubin LESS THAN 0.1 MG/DL Neutrophils (%) (Auto) 93.2 % (16.0-70.0) Lymphocytes (%) (Auto) 5.6 % (9.0-44.0) Neutrophils # (Auto) 7.8 TH/MM3 (1.8-7.7) Lymphocytes # (Auto) 0.5 TH/MM3 (1.0-4.8) Blood Urea Nitrogen 6 MG/DL (7-18) Random Glucose 132 MG/DL (74-106) Calcium Level 8.4 MG/DL (8.5-10.1) Chloride Level 108 MEQ/L (98-107) PE at Discharge Alert and awake Cardio: RRR Resp; CTAB Abd: incision c/d/i with skin glue; abdomen soft; minimally tender Hospital Course This is a 21 year old female POD1 lap appy; uncomplicated; non perforated. She was able to tolerate a regular diet. Her pain was controlled using oral pain medications. She was given routine post op instructions. She will follow up in the office on Nov 09. Pt Condition on Discharge: Good Discharge Disposition: Discharge Home Discharge Instructions DIET: Follow Instructions for: As Tolerated, No Restrictions Activities you can perform: See Additionl Instruction Other Activity Instructions: Okay to shower this evening;let soapy water run over incisions; pat dry Avoid heavy pulling, pushing and lifting Attending Statement pathology confirming acute appendicitis Jen Floyd Oct 26, 2017 17:22 Tello Kumar MD Oct 30, 2017 19:52
[2017-10-26 20:00] VITALS: BP 122/77; PULSE 89; RESP 16; TEMP 97.8; O2SAT 98
--- NOTE | 2017-10-28 20:50 | MP ---
cc: AMERICA KUMAR MD DATE OF SURGERY: 10/25/2017. PREOPERATIVE DIAGNOSIS: Acute appendicitis. POSTOPERATIVE DIAGNOSIS: Acute appendicitis. PROCEDURE PERFORMED: Laparoscopic appendectomy. SURGEON: Dr. America Kumar. CURRICULUM DEVELOPMENT SPECIALIST: See OR sheet ANESTHESIA: GETA. IV FLUIDS: See anesthesia sheet ESTIMATED BLOOD LOSS: 5 mL. DRAINS: None. COMPLICATIONS: None WOUND CLASSIFICATION: Clean / contaminated. SPECIMENS: Appendix. FINDINGS: Somewhat thin and mildly indurated appendix. No abscess and some fluid in pelvis, bilateral ovaries examined with small cysts present. INDICATIONS FOR THE PROCEDURE: The patient is a 21-year-old female who presented with acute onset of right-sided pain. She states the pain started approximately four days ago and continued to get worse. She came to the emergency department and further evaluation including CT scan was concerning for acute appendicitis. DESCRIPTION OF THE PROCEDURE IN DETAIL: The patient was taken to the operating suite and placed in supine position. She was prepped and draped in the usual sterile fashion after induction of general endotracheal anesthesia. Brief time-out done stating correct patient, procedure, surgical site and all were in agreement with this. Attention was directed to the umbilicus where a stab javed incision was made with an 11-blade. A Veress needle was placed intraabdominal and placement confirmed with saline drop test. Abdomen insufflated to 50 mm pneumoperitoneum.. The Veress needle was changed for a 5-mm scope. On cursory inspection, there was no evidence of injury. The other two trocars were placed including a suprapubic 5 mm and a left lower quadrant 12 mm. The patient placed in Trendelenburg position and planed to the left. The right lower quadrant was identified. There was noted to be the appendix. The appendix was noted to be somewhat indurated but not grossly distended or dilated; therefore, commencement of appendectomy was done by making a hole in the base of the medial appendix. The Endo LICHA stapler was used to transect the base of the mesoappendix. A second stapler load was used to transect the appendix. The appendix was placed in the EndoCatch bag and removed from the abdomen through the left lower quadrant 12 port. Some fluid was noted; it did not look like purulence or pus, and it was more of a serous fluid and was suctioned from the abdomen. Bilateral ovaries were observed and noted to have small cysts. Otherwise, there was no evidence of further pathology. Next the trocars were removed under direct visualization. The 12 mm trocar was closed with a simple #0 Vicryl to the fascia and 4-0 Monocryl subcuticular sutures placed to the skin. A sterile dressing was placed. The patient tolerated the procedure well. No intraoperative complications. All lap and instrument counts were correct at the end of the procedure. The patient was extubated and taken stable to the post-anesthesia care unit. MD CICI Rain/LISHA /11:48 AM /8:25 PM
== END 2017-10-26 20:11 | disposition home or self-care (01) | DRG 343 ==
LOC: NEPC 16:27 → NEDA 22:18 → N07B 22:39 → OBSVTOIN 23:02 → N06A 10-26 00:35 → N06B 10-26 00:37
PROVIDERS: ADMIT Surgery; ATTEND Surgery
PROC: 0DTJ4ZZ Resection of Appendix, Percutaneous Endoscopic Approach (ICD-10-PCS; principal; 2017-10-25 22:46)
DX: K35.80 Unspecified acute appendicitis (principal); F90.9 Attention-deficit hyperactivity disorder, unspecified type
CPT/HCPCS: 74177; 80048; 80053; 81001; 84703; 85025; 86850; 86900; 86901; 88304; 94150; 96374; 96375; J0131; J0330; J1100; J1170; J1200; J1885; J2405; J2543; J2710; J7030; J7120; Q9967